=== PATIENT | female | born 1955 | race Caucasian/White ===

== ENCOUNTER 2022-02-04 15:48 | Emergency (ER) | payer OTHER, SELFPAY ==
--- NOTE | ~2022-02-04 | XR_ITS ---
EXAMINATION: XR shoulder RT min 2V DATE: 02/04/2022 16:21 INDICATION: Right shoulder pain. TECHNIQUE: 4 views of right shoulder were obtained. COMPARISON: None. FINDINGS: Bone alignment is normal. No fracture. There is mild osteoarthritis of glenohumeral joint a nd acromioclavicular joint. There are changes of anterior fusion procedure in cervical spine. IMPRESSION: 1. Mild polyarticular osteoarthritis. Reviewed, dictated and finalized at location A.
[2022-02-04 16:00] VITALS: BP 142/66; PULSE 116; RESP 18; TEMP 36.9; O2SAT 98
--- NOTE | 2022-02-04 16:02 | ED.UPPEXIN ---
HPI - Extremity Injury (Upper) General Chief Complaint: Extremity Injury, Upper Stated Complaint: other Time Seen by Provider: 02/04/22 16:02 Source: patient Mode of arrival: ambulatory Limitations: no limitations History of Present Illness HPI narrative: 66-year-old female presented for complaint of right shoulder pain worsening over the past 3 to 4 weeks after injury. She states she fell at that time, stating she took most of the fall to her face but did land on the right upper arm as well. Endorses pain with all range of motion to shoulder. Pain is sharp and shooting. Rates 3 at rest, 7 with movement. Denies numbness, tingling, weakness of the right upper extremity. She takes Tylenol and Motrin for spinal stenosis regularly. Hx cervical spine surgery 'plate' at C5-6 and has chronic neck pain. Related Data Home Medications Medication Instructions Recorded Confirmed atorvastatin 40 mg PO DAILY 02/04/22 02/04/22 fluticasone propion-salmeterol 1 inh INHALATION BID 02/04/22 02/04/22 [Advair Diskus] tramadol 50 mg PO Q8-10H 02/04/22 02/04/22 Allergies Allergy/AdvReac Type Severity Reaction Status Date / Time No Known Allergies Allergy Verified 02/04/22 16:10 Review of Systems Review of Systems: CONSTITUTIONAL: Denies body aches, fever, chills EYES: Denies visual changes ENT: Denies rhinorrhea, congestion CARDIOVASCULAR: Denies chest pain, palpitations, or edema. RESPIRATORY: Denies cough or dyspnea. GASTROINTESTINAL: Denies abdominal pain, nausea, vomiting, or diarrhea. SKIN: Denies rash, itching, or wounds. MUSCULOSKELETAL: reports right shoulder pain NEUROLOGIC: Denies headache, numbness, tingling, or weakness. PSYCH: Denies depression or anxiety. All systems reviewed & are unremarkable except as noted in HPI and below PMFSH Past Medical History Medical History History of IBS Psoriasis Social History Social History Smoking status: Never smoker Comments At time of signature, I have reviewed and agree with nursing past medical, surgical, social and family history unless otherwise noted. Please see nursing chart for further information. There is no relevant family history pertinent to the presenting complaint Exam Narrative: GENERAL: Well-appearing, in no acute distress. HEAD: Normocephalic, atraumatic. EYES: conjunctivae clear NECK: Supple. CHEST: Speaks in full sentences. No respiratory distress. HEART: Regular rate and rhythm. Normal and equal peripheral pulses. EXTREMITIES: ZORAIDA has normal strength and sensation, Full range of motion with flexion/extension/rotation at shoulder, but endorses pain with movement. Tender with palpation to right medial scapula area and trapezius. No vertebral point tenderness. No edema or ecchymosis, No open wounds, skin tenting, or obvious deformity; pulse palpable and equal bilaterally, skin warm, dry, pink. Capillary refill less than 3 seconds. SKIN: Warm, dry, no rash. NEURO: Alert and oriented x3. PSYCH: Normal mood and affect Course Course Emergency Course: Patient is aware of diagnosis, understands and agrees to treatment plan. Anticipatory guidance given. Patient agrees to follow-up as directed and is aware of reasons to seek care at the emergency department. Portions of this record may have been created with voice recognition software Level of Care: Express Care Visit Vital Signs Vital signs: Vital Signs Temperature 98.5 F 02/04/22 16:00 Pulse Rate 116 H 02/04/22 16:00 Respiratory Rate 18 02/04/22 16:00 Blood Pressure 142/66 H 02/04/22 16:00 Pulse Oximetry 98 02/04/22 16:00 Temperature 98.5 F 02/04/22 16:00 Pulse Rate 116 H 02/04/22 16:00 Respiratory Rate 18 02/04/22 16:00 Blood Pressure 142/66 H 02/04/22 16:00 Pulse Oximetry 98 02/04/22 16:00 Reviewed MDM - Extremity Injury (Upper) MDM Narrat
== END 2022-02-04 16:47 | disposition home or self-care (01) ==
PROVIDERS: Emergency Provider Nurse Practitioner Family
DX: M25.511 Pain in right shoulder (principal); E78.00 Pure hypercholesterolemia, unspecified; J43.9 Emphysema, unspecified; M19.90 Unspecified osteoarthritis, unspecified site; M48.00 Spinal stenosis, site unspecified
CPT/HCPCS: 73030; 99213; G0463

== ENCOUNTER 2024-08-10 04:15 | Emergency (ER) | payer MEDICARE, SELFPAY ==
--- NOTE | ~2024-08-10 | CT_ITS ---
Clinical Indication: Abdominal pain CT Scan of the Chest, Abdomen, and Pelvis with Contrast: Technique: Contiguous sections were acquired throughout the chest, abdomen, and pelvis after intraven ous administration of 100 cc of Omnipaque 350. Dose reduction technique was used on this scan by uti toiing automated exposure control and iterative reconstruction technique. The dose-length product (DL P) was 930.55 mGy-cm. Findings: There is no evidence of any significant mediastinal, hilar or axillary lymphadenopathy. The mediastin al soft tissues appear normal. There is no evidence of pleural or pericardial effusion. The lungs are clear. No pulmonary nodules or infiltrates are noted. Moderate emphysema. The liver, spleen, pancreas, right adrenal gland, and kidneys are within normal limits. Cholecystecto my clips are present. 2.1 cm left adrenal nodule present. There are atherosclerotic calcifications of the aorta. No lymphadenopathy. No bowel obstruction or bowel wall thickening. There is no evidence to suggest acute appendicitis. Probable mild diffuse urinary bladder wall thickening. No pelvic mass evident. Small fat-containing b ilateral inguinal hernias present. No ascites. Impression: Probable cystitis. Correlate with urinalysis. Small fat-containing bilateral inguinal hernias. 2.1 cm indeterminate left adrenal nodule. Consider follow-up nonemergent MR to assess for adenoma. Reviewed, dictated and finalized at [facility]. Impression: Probable cystitis. Correlate with urinalysis. Small fat-containing bilateral inguinal hernias. 2.1 cm indeterminate left adrenal nodule. Consider follow-up nonemergent MR to assess for adenoma.
--- NOTE | ~2024-08-10 | XR_ITS ---
Portable chest x-ray Comparison: None Clinical History: Cough Findings: Lungs are clear, without focal consolidation or pleural effusion. Cardiomediastinal silho uette is unremarkable. Bones and soft tissues are unremarkable. Impression: Clear lungs. Reviewed, dictated and finalized at location M. Impression: Clear lungs.
[2024-08-10 04:26] VITALS: BP 152/91; PULSE 131; RESP 22; TEMP 36.9; O2SAT 97
--- NOTE | 2024-08-10 04:37 | ECG_ITS ---
Test Date: 2024-08-10 04:42:43 Measurements Intervals [place] Rate: 129 P: 64 [place]: 128 QRS: -44 QRSD: 128 T: 31 QT: 395 QTc: 579 Interpretive Statements SINUS TACHYCARDIA MARKED LEFT AXIS DEVIATION [QRS AXIS < -30] RIGHT BUNDLE BRANCH BLOCK [120+ ms QRS DURATION, UPRIGHT V1, 40+ ms S IN I/aVL/V4/V5/V6] No previous ECG available for comparison Electronically Signed On 08-10-2024 09:48:01 CDT by Yuly Romero M.D.
[2024-08-10] MEDS: SODIUM CHLORIDE 0.9% IV 1,000 ML 999 ML IV CONT ×2 (04:48→05:13)
--- NOTE | 2024-08-10 05:01 | ED_ITS ---
HPI - Abdominal Pain General Chief Complaint: Abdominal Pain Stated Complaint: hematuria, abdominal pain Time Seen by Provider: 08/10/24 04:18 History of Present Illness HPI narrative: Patient is a 68-year-old female who presents to the emergency department this morning with multiple complaints. Patient states that for the past 9 days she has been having URI/flu-like symptoms with sore throat and a cough that is productive of a greenish brown sputum. Patient also states that she started to develop some abdominal pain and this morning noticed that her urine is purely blood so she finally decided to come to the emergency department for further evaluation. Patient states that her daughter was recently diagnosed with hemochromatosis and she is currently pending blood work to be tested for hemochromatosis since it is hereditary. Patient admits that she has had her gallbladder removed many years ago. Denies any additional symptoms or concerns at this time. Related Data Home Medications Medication Instructions Recorded Confirmed atorvastatin 40 mg tablet 40 mg PO DAILY 02/04/22 02/04/22 fluticasone 100 mcg-salmeterol 50 1 inh inhalation BID 02/04/22 02/04/22 mcg/dose blistr powdr for inhalation (Advair Diskus) tramadol 50 mg tablet 50 mg PO Q8-10H 02/04/22 02/04/22 Allergies Allergy/AdvReac Type Severity Reaction Status Date / Time No Known Allergies Allergy Verified 02/04/22 16:10 Review of Systems Review of Systems: All systems are reviewed and are negative unless stated otherwise in the HPI. [facility] Past Medical History Medical History History of IBS Psoriasis Social History Social History Smoking status: Never smoker Living arrangements: with family Exam Narrative: General: Alert, awake, afebrile, in no acute distress. HEENT: PERRL, no rhinorrhea, no post nasal drip, oropharynx clear. Cardiovascular: Tachycardic with regular rhythm, no murmurs, rubs or gallops, no peripheral edema. Respiratory: Clear to auscultation bilaterally, no tachypnea, no wheezing, no rhonchi, no rubs, no respiratory distress. Abdomen: Soft, nontender, nondistended, no rebound, no guarding, no peritoneal signs. Musculoskeletal: No joint swelling or deformity, normal muscle tone. Skin: No rashes or petechia, no signs of infection. Neurological: Alert and oriented to person, place, and time. Follows all commands. No focal deficits, speech is clear and fluent. Course Vital Signs Vital signs: Vital Signs Temperature 98.5 F 08/10/24 04:26 Pulse Rate 131 H 08/10/24 04:26 Respiratory Rate 22 H 08/10/24 04:26 Blood Pressure 152/91 H 08/10/24 04:26 Pulse Oximetry 97 08/10/24 04:26 Oxygen Delivery Room Air 08/10/24 04:26 Temperature 98.5 F 08/10/24 04:26 Pulse Rate 116 H 08/10/24 07:20 Respiratory Rate 18 08/10/24 07:20 Blood Pressure 164/88 H 08/10/24 07:20 Pulse Oximetry 97 08/10/24 07:20 Oxygen Delivery Room Air 08/10/24 04:26 MDM - Abdominal Pain MDM Narrative Medical decision making narrative: The patient was evaluated by myself in the emergency department. History is obtained from patient who is an independent historian and physical exam was performed. External medical records were reviewed at this time. IV was established and pertinent tests were ordered. Patient was administered 2 L IVF bolus with normal saline, 4 mg of IV morphine for pain and 4 mg IV Zofran for nausea. EKG was obtained which revealed sinus tachycardia at a rate of 129 beats per minute, no evidence of acute ischemia. EKG was independently interpreted by me and is currently pending official cardiology read. Laboratory results obtained revealing a white blood cell count of 12.8, AST 60, ALT 88, lipase 1297. Urinalysis revealed 4+ protein, trace ketones, 4+ blood, 1+ leuk esterase and greater than 100 rbc's. Imaging studies obtained included CXR which was independently interpreted by me revealing no acute process, which is pending final radiology interpretation. CTA chest abdomen pelvis with IV contrast was also obtained at this time and independently interpreted by me revealin. Probable cystitis. Correlate with urinalysis. 2. Small fat-containing bilateral inguinal hernias. 3. 2.1 cm indeterminate left adrenal nodule. Consider follow-up nonemergent MR to assess for adenoma. At this time, patient was informed of these findings at bedside and blood work and imaging results were reviewed with her. Repeat vital signs revealed heart rate of 111 beats per minute. Patient states that she feels significantly b elana. Currently denying any abdominal pain. Shared medical decision-making with patient regarding hospital admission was discussed at this time and patient is refusing admission stating that she would like to follow-up with her primary care physician as an outpatient. Patient was informed that she will be provided with Urology referral regarding her hematuria/cystitis and she was instructed th at she will need to call to set up a follow-up appointment and patient is agreeable. Given that the patient is symptomatic with dysuria and increased urinary frequency patient was informed that she will be placed on an oral antibiotic to take at home. She was administer her initial dose of antibiotic in the emergency department with 1 g IV Rocephin. Differential diagnosis considerations include pyelonephritis, septic stone, gastroenteritis, dehydration, electrolyte derangements. Comorbidities impacting this visit include none. I have evaluated and discussed social determinants of health with the patient that could potentially impact subsequent diagnosis and treatment plans. On repeat assessment of the patient, reevaluation revealed that the patient is doing well and is in no acute distress. Patient symptoms have improved since she arrived to our emergency department. Repeat vital signs were all reviewed and noted to be stable. Differential diagnosis and treatment plan were discussed with the patient at bedside. All questions were answered to the patient's satisfaction. Patient will follow up with urology in 3-5 days. Patient was provided with strict return precautions and instructed to return to the emergency department if any new or worsening symptoms develop. The patient was discharged in stable condition. Lab Data 08/10/24 04:53 08/10/24 04:53 Labs: Lab Results 08/10/24 Range/Units 04:53 WBC 12.8 H (4.5-10.0) K/mm3 RBC 5.31 (4.2-5.4) M/mm3 Hgb 15.6 H (12.0-15.0) g/dL Hct 47.8 H (37.0-47.0) % MCV 90.0 (80-100) fl MCH 29.4 (26-34) pg MCHC 32.6 (32-36) g/dl RDW 11.9 (11.5-14.5) % Plt Count 369 (150-375) k/mm3 MPV 9.8 (7.4-10.4) fl Immature Gran % (Auto) 0.4 (0-0.5) % Neut % (Auto) 70.2 (45.5-73.1) % Lymph % (Auto) 17.9 L (18.3-44.2) % [place] % (Auto) 9.3 H (2.6-8.5) % Eos % (Auto) 1.6 (0-4.4) % Baso % (Auto) 0.6 (0.2-1.2) % Lymph # (Auto) 2.28 (0.9-3.2) K/mm3 [place] # (Auto) 1.2 H (0.1-0.6) K/mm3 Eos # (Auto) 0.2 (0-0.3) K/mm3 Baso # (Auto) 0.1 (0.0-0.1) K/mm3 Abs Immat Gran (auto) 0.05 H (0.00-0.031) K/mm3 Absolute Neuts (auto) 9.0 H (1.3-6.7) K/mm3 Absolute Nucleated RBC 0.000 (0.0-0.012) K/mm3 Nucleated RBC % 0.0 (0.0-0.2) % Sodium 135 L (137-145) mmol/L Potassium 3.7 (3.4-5.0) mmol/L Chloride 102 (98-107) mmol/L Carbon Dioxide 20 L (22-30) mmol/L Anion Gap 13 H (4-12) mmol/L BUN 12 (7-17) mg/dL Creatinine 1.00 (0.7-1.0) mg/dL Estim Creat Clear Calc 46 ml/min Estimated GFR 55 L (59 - ) Glucose 140 H (65-110) mg/dL Lactic Acid 1.4 (0.7-2.0) mmol/L Calcium 9.5 (8.4-10.2) mg/dL Magnesium 1.9 (1.6-2.3) mg/dL Total Bilirubin 1.0 (0.2-1.3) mg/dL AST 60 H (14-36) U/L ALT 88 H (6-35) U/L Alkaline Phosphatase 105 (38-126) U/L Total Protein 9.0 H (6.3-8.2) g/dL Albumin 4.7 (3.5-5.1) g/dL Lipase 1297 H (23-300) U/L Urine Color Yellow (Yellow) Urine Appearance Clear (Clear) Urine pH 6.5 (5.0-9.0) Ur Specific [place] 1.025 (1.001-1.035) Urine Protein 4+ H (Negative) mg/dL Urine Glucose (UA) Negative (Negative) mg/dL Urine Ketones Trace H (Negative) mg/dL Ur Blood (Man) 4+ H (Negative) Urine Nitrate Negative (Negative) Urine Bilirubin Negative (Negative) Urine Urobilinogen 1.0 (<2.0) mg/dL Add Ur Microanalysis Reviewed Leukocyte Esterase Rfl 1+ H (Negative) PAULINE/UL Urine RBC >100 H (0-2) /hpf Urine WBC 0-5 (0-3) /hpf Ur Squamous Epith Cells None seen (Few) /hpf Urine Bacteria Trace /hpf Urine Casts 0-2 Influenza A (RT-PCR) Negative (Negative) Influenza B (RT-PCR) Negative (Negative) RSV (RT-PCR) Negative (Negative) SARS-CoV-2 RNA (RT-PCR) Negative (Negative) Imaging Data Radiologist's impression: ITS Impressions Chest X-Ray 08/10/24 05:52 Impression: Clear lungs. Chest/Abdomen/Pelvis CTA 08/10/24 06:33 Impression: Probable cystitis. Correlate with urinalysis. Small fat-containing bilateral inguinal hernias. 2.1 cm indeterminate left adrenal nodule. Consider follow-up nonemergent MR to assess for adenoma. Discharge Plan Discharge Clinical Impression: Hematuria, Cystitis Patient Disposition: Home, Self-Care Condition: Improved Instructions: Antibiotic Form, Hematuria (ED), Interstitial Cystitis (ED) Additional Instructions: Please follow-up with the urologist you were provided with today within the next 3-5 days. Return to the emergency department if any new or worsening symptoms develop. Take the prescribed antibiotic as instructed. Prescriptions: New cephalexin 500 mg capsule 500 mg PO Q12H 5 Days Qty: 10 0RF cephalexin 500 mg capsule 500 mg PO Q12H Qty: 10 0RF No Action atorvastatin 40 mg tablet 40 mg PO DAILY tramadol 50 mg tablet 50 mg PO Q8-10H fluticasone propion-salmeterol [Advair Diskus] 100-50 mcg/dose blister with device 1 inh INHALATION BID Follow-up/Referrals: Estuadro Isaac MD [Physician] - 3 Days UNKNOWN,DOCTOR [Primary Care Provider] - Time of Disposition: 06:54
[2024-08-10 05:05] LABS: Basophils Absolute Auto 0.1 K/mm3 (0.0-0.1); Basophils Percent Auto 0.6 % (0.2-1.2); Eosinophils Absolute Auto 0.2 K/mm3 (0-0.3); Eosinophils Percent Auto 1.6 % (0-4.4); Hematocrit 47.8 % (37.0-47.0); Hemoglobin 15.6 g/dL (12.0-15.0); Immature Granulocyte Absolute 0.05 K/mm3 (0.00-0.031); Immature Granulocyte Percent A 0.4 % (0-0.5); Lymphocytes Absolute Auto 2.28 K/mm3 (0.9-3.2); Lymphocytes Percent Auto 17.9 % (18.3-44.2); Mean Corpuscular HGB Conc 32.6 g/dl (32-36); Mean Corpuscular Hemoglobin 29.4 pg (26-34); Mean Platelet Volume 9.8 fl (7.4-10.4); Monocytes Absolute Auto 1.2 K/mm3 (0.1-0.6); Monocytes Percent Auto 9.3 % (2.6-8.5); Neutrophils Percent Auto 70.2 % (45.5-73.1); Platelet Count Result 369 k/mm3 (150-375); Red Blood Count 5.31 M/mm3 (4.2-5.4); Red Cell Distribution Width 11.9 % (11.5-14.5); White Blood Count 12.8 K/mm3 (4.5-10.0)
[2024-08-10 05:18] LABS: Lactic Acid Reflex 1.4 mmol/L (0.7-2.0); Magnesium 1.9 mg/dL (1.6-2.3)
[2024-08-10 05:35] LABS: Add Urine Microscopic? YES; Appearance Urine Clear (Clear); Bacteria Urine Trace /hpf; Bilirubin Urine Negative (Negative); Blood Urine 4+ (Negative); Color Urine Yellow (Yellow); Glucose Urine UA Negative (Negative); Ketones Urine Trace mg/dL (Negative); Leukocyte Esterase Ur 1+ LEU/UL (Negative); Need Manual Microscopic Reviewed; Nitrate Urine Negative (Negative); Non Pathogenic Casts 0-2; Protein Urine 4+ mg/dL (Negative); RBC Urine >100 /hpf (0-2); Specific Grav Ur 1.025 (1.001-1.035); Squamous Epithelial Cell Urine None Seen /hpf (Few); WBC Urine 0-5 /hpf (0-3); pH Urine 6.5 (5.0-9.0)
[2024-08-10 05:41] LABS: Influenza A QL RT-PCR Negative (Negative); Influenza B QL RT-PCR Negative (Negative); RSV RNA, RT-PCR Negative (Negative); SARS-CoV-2 RNA PCR Negative (Negative)
[2024-08-10 05:44] LABS: Alanine Aminotransferase 88 U/L (6-35); Albumin Level 4.7 g/dL (3.5-5.1); Alkaline Phosphatase 105 U/L (38-126); Anion Gap 13 mmol/L (4-12); Aspartate Amino Transferase 60 U/L (14-36); Blood Urea Nitrogen 12 mg/dL (7-17); Calcium 9.5 mg/dL (8.4-10.2); Carbon Dioxide 20 mmol/L (22-30); Chloride 102 mmol/L (98-107); Estimated CRCL calculation 46 ml/min; Estimated Glomerular Filt Rate 55; Glucose 140 mg/dL (65-110); Lipase 1297 U/L (23-300); Potassium 3.7 mmol/L (3.4-5.0); Sodium 135 mmol/L (137-145)
--- NOTE | 2024-08-10 06:02 | PC.NURSE ---
Pt to CT at this time.
[2024-08-10] MEDS: ONDANSETRON INJ 4 MG/2 ML VIAL IV PUSH (06:14)
--- NOTE | 2024-08-10 06:15 | PC.NURSE ---
Pt refusing medication order of morphine at this time. pt states she is not in any pain at this time, but will notify RN when pain medication is needed.
[2024-08-10 06:17] VITALS: BP 163/89; PULSE 115; RESP 17; O2SAT 98
[2024-08-10 07:20] VITALS: BP 164/88; PULSE 116; RESP 18; O2SAT 97
--- NOTE | 2024-08-22 15:11 | PC.NURSE ---
LATE ENTRY This note is being entered to document information to the patient's record. The following information was omitted on [08/22/24], by [Lulú Cruz stopped at 0745 on 08/10].
== END 2024-08-10 07:49 | disposition home or self-care (01) ==
PROVIDERS: Emergency Provider Emergency Medicine
DX: N30.91 Cystitis, unspecified with hematuria (principal); Z20.822 Contact with and (suspected) exposure to COVID-19; K58.9 Irritable bowel syndrome, unspecified; L40.9 Psoriasis, unspecified; E27.9 Disorder of adrenal gland, unspecified; Z79.899 Other long term (current) drug therapy
CPT/HCPCS: 36415; 71045; 71275; 74177; 80053; 81001; 83605; 83690; 83735; 85025; 87040; 87077; 87086; 87186; 87637; 93005; 96361; 96365; 96375; 99284; J0696; J2405; J7030; Q9967

== ENCOUNTER 2025-05-23 17:52 | Emergency (ER) | payer MEDICARE, SELFPAY ==
--- OUTSIDE RECORDS SUMMARY | 2025-05-23 17:55 | XMS_ITS | Clinical Summary ---
Author Organization [facility] Address [address] [place] [address] Phone Care Team Providers Care Test Desk Trouble Locator Name Role Phone Oskar MEHTA MD, [facility] [phone] Rachelle Early MD Primary Care Provider Allergies No known active allergies Medications acetaminophen (TYLENOL) 500 mg tablet Take 2 tablets (1,000 mg total) by mouth every 6 (six) hours as needed for pain Active fluticasone propionate (FLONASE) 50 mcg/actuation nasal spray Administer 1 spray into each nostril daily Active ergocalciferol, vitamin D2, (VITAMIN D2 ORAL) Take by mouth Active calcium carbonate (TUMS) 500 mg (200 mg elemental iron) chewable tablet Take 1 tablet/chew tab (500 mg total) by mouth 4 (four) times a day as needed for heartburn Active albuterol HFA (PROVENTIL HFA,VENTOLIN HFA,PROAIR HFA) 90 mcg/actuation inhaler INHALE 2 PUFFS BY MOUTH EVERY 6 HOURS NEEDED FOR WHEEZING OR SHORTNESS OF BREATH 8.5 g 1 023 Active Additional Information Patient taking differently: 2 puff inhalation Every 6 hours PRN, wheezing, shortness of breath, Informant: Self, Reported on 05/01/2025 ibuprofen (ADVIL,MOTRIN) 600 mg tablet Take 1 tablet (600 mg total) by mouth 3 (three) times a day as needed for pain Active cyclobenzaprine (FLEXERIL) 5 mg tablet Take 1 tablet (5 mg total) by mouth 3 (three) times a day as needed for muscle spasms 90 tablet 024 Active semaglutide 0.25 mg or 0.5 mg (2 mg/3 mL) pen injector injection Take by mouth Active amLODIPine (NORVASC) 5 mg tablet Take 1 tablet (5 mg total) by mouth daily 90 tablet 3 025 Active atorvastatin (LIPITOR) 40 mg tabletIndications :Mixed hyperlipidemia Take 1 tablet (40 mg total) by mouth daily 100 tablet 1 025 Active traZODone (DESYREL) 50 mg tabletIndications :Annual physical exam TAKE 1 TABLET(50 MG) BY MOUTH EVERY NIGHT 100 tablet 025 Active traMADoL (ULTRAM) 50 mg tablet Take 1 tablet (50 mg total) by mouth every 12 (twelve) hours as needed for pain 30 tablet 1 025 Active gabapentin (NEURONTIN) 300 mg capsule Take 1 capsule (300 mg total) by mouth 3 (three) times a day 270 capsule 1 025 2025 Active gabapentin (NEURONTIN) 100 mg capsule Take 1 capsule (100 mg total) by mouth 3 (three) times a day 270 capsule 4 025 2025 Active gabapentin (NEURONTIN) 600 mg tablet Take 1 tablet (600 mg total) by mouth 3 (three) times a day 90 tablet 11 024 2024 Discontinued traZODone (DESYREL) 50 mg tabletIndications :Annual physical exam Take 1 tablet (50 mg total) by mouth nightly 100 tablet 1 025 2024 Discontinued traMADoL (ULTRAM) 50 mg tablet Take 1 tablet (50 mg total) by mouth every 12 (twelve) hours as needed for pain 30 tablet 1 025 2024 Discontinued(R denilson) Active Problems Problem Noted Date Diagnosed Date Elevated hemoglobin 11/03/2024 Intervertebral disc disorder with radiculopathy of lumbar region 12/04/2023 Personal history of colonic polyps 10/28/2023 Acute cholecystitis 04/01/2022 IBS (irritable bowel syndrome) 02/25/2022 Adrenal adenoma, left 02/25/2022 Spinal stenosis 02/25/2022 Elevated blood pressure reading 02/25/2022 Screen for colon cancer 06/06/2020 Overview (06/06/2020): Added automatically from request for surgery [id number] Trochanteric bursitis of both hips 07/01/2019 Assessment & Plan (07/01/2019 12:20 PM CDT): Recent MRI revealed bilateral trochanteric bursitis. Patient given handout of exercises. Also sees PT and has appointment soon with pain management Dr. Pepe. Polyarthralgia 03/24/2019 Overview (07/01/2019): Labs (03/24/19): negative AVISE (03/24/19): BHAVANA 1:80 nucleolar pattern Hepatitis negative: 02/2019 Quantiferon - indeterminate x2 - PPD negative Xray pelvis (03/29/19): mild jts space narrowing at hips Xray Hiro feet (03/29/19): mild degenerative changes, calcaneal spur Xray Hiro hands (03/29/19): CMC OA, mild degenerative changes Xray L-spine (03/29/19): very mild DDD L2-3 CXR (03/29/19): few small scattered perihilar densities which may be related to vessels on end, sequelae of remote infection, or both. MRI pelvis (06/23/19): SI joints wnl. Left gluteus minimus tendon tear and right gluteus minimus tendon partial tear. Mild bilat greater trochanteric bursitis. US R hand/wrist (04/01/19): Mild synovial thickening of the 2nd and 3rd PIPs on examination which will have to be correlated clinically. If MRI indicates sacroiliitis, consider repeating TB 3 months after starting biolgoics. Neg MRI - likely not psoriatic arthritis. F/u 3 months and if no changes release pt. Assessment & Plan (07/01/2019 4:59 PM CDT): Continues to have pain and stiffness in low back/SI joints and hips. MRI of pelvis/SI joints revealed left gluteus minimus tear and partial tear on the right as well as bilateral trochanteric bursitis. No sacroiliitis noted which makes the diagnosis of psoriatic arthritis less likely. No obvious peripheral synovitis or tenderness noted on exam. Has been on MTX and enbrel in the past for psoriasis. Failed nabumetone, oxaprozin, ibuprofen, and naproxen. Based on MRI findings, it is likely the tendon tears and trochanteric bursitis are causing her symptoms and not an underlying spondyloarthritis. Continue PT which was ordered last visit. Has appointment with pain management Dr. Pepe soon. Could consider following with ortho for gluteus minimus tears, but will see how she responds to PT. Patient given handout of exercises for trochanteric bursitis. Continue Diclofenac 75mg BID as she notes benefit with this. Follows with podiatry for plantar fasciitis. Follow up in 3 months. Sooner if needed. Assessment & Plan (05/20/2019 2:56 PM CDT): Continues to have pain and stiffness mostly in her low back, SI joints, hips, and hands. Foot pain improved with corticosteroid injections. Pain resolved with prednisone in the past. Lumbar spine and SI joints are tender on exam today. No obvious peripheral synovitis or tenderness. Has been on MTX and enbrel in the past for psoriasis. MTX caused nausea. Failed nabumetone, oxaprozin, ibuprofen, and naproxen. Low back stiffness as well as history of psoriasis, tendinitis, and plantar fasciitis are suspicious for psoriatic arthritis, however there are no peripheral joint findings to confirm this diagnosis. Will get an MRI of the SI joints to further evaluate for sacroiliitis. Will also give referral for PT of the low back/SI joints and hips as well as referral to pain management for evaluation and possible SI joints/lumbar spine injections. Will continue to monitor for any progression that would indication an inflammatory arthritis. Stop nabumetone and start diclofenac 75mg BID. Follow up in 6 weeks. Sooner if needed. Seen with Dr. Schmitt. Assessment & Plan (04/26/2019 3:13 PM CDT): US R hand/wrist (6/7/19): Mild synovial thickening of the 2nd and 3rd PIPs on examination which will have to be correlated clinically. Serologies revealed a low positive BHAVANA 1:80, however denies any symptoms to suggest a CTD. Radiographs revealed OA in the bilateral hips, feet, hands, and lumbar spine. Continues to note pain and stiffness in hands, feet, and low back. Morning stiffness can last 30 minutes - 1 hour. Pain resolved while on prednisone in the past. No obvious synovitis or tenderness on exam. Left medial epicondyle tender to palpation. Has been on methotrexate and enbrel in the past for psoriasis. Methotrexate cause nausea. Low back stiffness as well as history of psoriasis, tendinitis, and plantar fasciitis are suspicious for psoriatic arthritis, however there are no peripheral joint findings to confirm this diagnosis. She also has a history of injury to her low back and x-ray did note DDD at L2-3. Likely that some of her pain is related to osteoarthritis seen on x-rays. Will stop ibuprofen 800mg TID as it is offering no benefit and start nabumetone 750mg BID prn pain. Has failed oxaprozin and naproxen in the past. Will continue to monitor for any progression that would indicate an inflammatory arthritis. Follow up in 1 month. Sooner if needed. Seen with Dr. Schmitt. Assessment & Plan (03/24/2019 4:30 PM CDT): Patient presents with history of psoriasis, plantar fasciitis, and pain in her lumbar spine, knees, and hands. Notes morning stiffness in her low back that can last 1 hour. Reports prednisone almost completely resolved her symptoms. Currently on ibuprofen 800mg TID with mild benefit. Swelling and tenderness noted across a few peripheral joints on exam today. Lumbar spine tender on exam while bilateral SI joints are non-tender. Symptoms and exam are suspicious for psoriatic arthritis. Will order appropriate serologies, radiographs, and a right hand/wrist US to further evaluate. Follow up in 2 weeks. Sooner if needed. Seen with Dr. Schmitt. Chronic bilateral low back pain without sciatica 07/06/2017 Unspecified dyspareunia (CODE) 11/21/2016 Herpes labialis 07/04/2016 Overview (01/29/2017): Cold sore Neck pain 07/04/2016 Overview (01/29/2017): Neck pain Psoriasis 02/06/2016 Ocular migraine 05/18/2015 Overview (01/29/2017): Ocular migraine Panic disorder 11/08/2014 Overview (01/29/2017): Panic anxiety syndrome Hyperlipidemia 03/11/2014 Overview (01/28/2017): HYPERLIPIDEMIA NEC/NOS Osteoarthritis 03/11/2014 Overview (01/30/2017): OSTEOARTHROS NOS-UNSPEC Menopausal symptom 06/20/2012 Emphysema of lung Resolved Problems Problem Noted Date Diagnosed Date Resolved Date Medial epicondylitis of left elbow 04/26/2019 02/25/2022 Assessment & Plan (07/01/2019 12:12 PM CDT): Left medial epicondyle tender on exam. Denies much benefit with nabumetone so stop this and start diclofenac 75mg BID. Recommend an elbow strap. If no benefit could always consider PT or even a corticosteroid injection. Assessment & Plan (05/20/2019 2:56 PM CDT): Left medial epicondyle tender on exam. Denies much benefit with nabumetone so stop this and start diclofenac 75mg BID. Recommend an elbow strap. If no benefit could always consider PT or even a corticosteroid injection. Assessment & Plan (04/26/2019 3:15 PM CDT): Left medial epicondyle tender on exam. Stop ibuprofen and start nabumetone 750mg BID. If no benefit could always consider an elbow strap, PT, and even a corticosteroid injection. Hearing loss 01/23/2015 02/25/2022 Joint finding 03/11/2014 02/25/2022 Overview (01/30/2017): JOINT SYMPT NEC-UNSP JT Encounters Date Type Department Care Team Description 05/23/2025 Nurse Triage [place] [id number] [place] [address] [address] [place] [address] Rachelle Early MD 05/17/[address] [place] [address] Rachelle Early MD Medication Request 05/01/2025 11:00 AM CDT Office Visit [address] [place] [phone] Rachelle Early MD Chronic pain syndrome (Primary Dx); Facial skin lesion; Burn 04/25/[address] [place] [phone] Rachelle Early MD Symptom Based Call from Last 3 Months Immunizations Immunization Administration Dates Next Due Influenza, Quadrivalent, Hig h Dose, Preservative Free, Intrr 10/28/2023 Influenza, Quadrivalent, Rec ombinant, Egg Free, Preservative Free, Intramuscular 07/30/2019 Influenza, Quadrivalent, Spl it, Preservative Free, Intramuscular 01/22/2022,08/07/2020,09/13/2018,07/04,07/04/2016,07/17/2015,07/17/2015 [employer] (J[employer]J) SARS-CoV-2 Vaccination 01/03/2021 PPD TEST 04/11/2019 Pneumococcal Conjugate Pcv20 10/28/2023 RSV Vaccine, Pref, Recombina nt, Subunit, Adjuvanted, PF, IM (Arexvy) 11/21/2023 Td, adsorbed 11/26/2005,11/26/2005 Tdap 07/04/2016,07/04/2016 ZOSTER Recombinant 09/12/2019,07/08/2019, 019 Surgical History Surgery Date Site/Laterality Comments CERVICAL FUSION C5-C6 COLONOSCOPY AUGMENTATION MAMMOPLASTY 10/26/2003 - 10/25/2004 AUGMENTATION MAMMAPLASTY Bilateral Saline Implants BREAST BIOPSY Left Benign KNEE SURGERY FL UPPER GI AIR CONTRAST W KUB 08/19/2022 Left FL UPPER GI AIR CONTRAST W KUB 02/10/2023 Left FL FLUORO GUIDED LUMBAR PUNCTURE 03/17/2023 Right CHOLECYSTECTOMY 03/26/2022 - 04/24/2022 FL UPPER GI AIR CONTRAST W KUB 06/01/2023 Left Medical History Medical History Date Comments Hx Other Medical psoriatic arthr itis? Bursitis 05/2019 B hips Plantar fasciitis 05/2019 Hyperlipidemia 03/11/2014 DDD (degenerative disc disease), cervical Lumbar radiculopathy Chest pain History of cholecystectomy PONV (postoperative nausea and vomiting) Has not had issues in many years Colon polyp Irritable bowel syndrome GERD (gastroesophageal reflux disease) Dysphagia Cholelithiasis Emphysema of lung (HCC) Family History Medical History Relation Name Comments Hypertension Father Hypertension; Skin cancer Father Cancer -skin; Lung cancer Maternal Grandfather Depression Mother Depression; Heart disease Mother Heart disease; Lupus Mother Lupus erythemat osus; Rheum arthritis Mother Rheumatoid a rthritis; Breast cancer Mother's Brother Heart disease Paternal Grandmother Malig Hyperthermia Neg Hx Pseudochol deficiency Neg Hx Relation Name Status Comments Father Maternal Grandfather Mother Mother's Brother Paternal Grandmother Social History Tobacco Use Types Packs/Day Years Used Date Smoking Tobacco: Former Cigarettes 1 45 1 [id number] Passive Smoke Exposure: Past Smokeless Tobacco: Current Tobacco Cessation:Ready to Q uit: Not Asked; Counseling Given: Not Answered Comments:Lozenge when people are smoking around her house Alcohol Use Standard Drinks/Week Comments Yes 0 (1 standard drink = 0.6 oz pur e alcohol) AUDIT-C Answer Date Recorded Q1: How often do you have a drink containing alc ohol? Monthly or less 06/17/2024 Q2: How many drinks containi ng alcohol do you have on a typical day when you are drinking? 1 or 2 06/17/2024 Q3: How often do you have si x or more drinks on one occasion? Never 06/17/2024 PHQ-2 Answer Date Recorded PHQ-2 Total Score (If total score is 3 or more points, staff should administer the PHQ-9) 0 05/01/2025 Personal Safety Answer Date Recorded Have you ever been in or are you currently in a harmful physical or emotional relationship or is someone making you feel afraid or unsafe? Denies 05/12/2024 Comments No Sex and Gender Information Value Date Recorded Sex Assigned at Not on file Legal Sex Female 12:44 AM PODIATRIC SURGEON Gender Identity Female 02/28/2022 1:54 PM CDT Sexual Orientation Straight 02/28/2022 1: 54 PM CDT Occupation Industry Job Start Date Job End Date Retired Not on file Not on file Not on file Obstetrics History Para Term AB IAB SAB Ectopic Multiple Livin g Live Births 2 2 2 Date Outcome GA Total Labor Labor/2nd/3rd Weight Sex Type Anes PTL Lory A1 A5 Name Clin Term Term Last Filed Vital Signs Vital Sign Reading Time Taken Comments Blood Pressure 126/72 05/01/2025 11:16 AM CDT Pulse 68 05/01/2025 11:16 AM CDT Temperature 36.4 C (97.5 F) 11/03/2024 11:18 AM PODIATRIC SURGEON Respiratory Rate 16 05/01/2025 11:16 AM CDT Oxygen Saturation 99% 05/01/2025 11:16 AM CDT Inhaled Oxygen Concentration - - Weight 61.2 kg (135 lb) 05/01/2025 11:16 AM CDT Height 154.9 cm (5' 1) 05/01/2025 11:16 AM CDT Body Mass Index 25.51 05/01/2025 11:16 AM CDT Plan of Treatment Scheduled Procedures Name Priority Associated Diagnoses Date/Ti me COLONOSCOPY Colon cancer screening ESOPHAGOGASTRODUODENOSCOPY Gastroesophageal reflux disease, unspecified whether esophagitis present COLONOSCOPY Screen for colon cancer Health Maintenance Due Date Last Done Comments Meningococcal B Vaccine (1 o f 5 - Increased Risk) 1965 Lung Cancer Screening 2007 Covid-19 Vaccine (2023-2 5 season) 2024 10/28/2021, 01/03/2021 Breast Cancer Screening-Mammogram 09/14/2024 09/14/2023, 01/20/2022, 07/08/2019, Additional history exists Osteoporosis Screening-Bone Density Scan 09/30/2024 09/30/2022 Influenza Vaccine (#1) 2025 , 01/22/2022, 01/22/2022, Additional history exists Fall Risk Assessment 11/03/2025 11/03/2024, 03/10/2024, 10/28/2023, Additional history exists Well Visit 65+ 11/03/2025 11/03/2024, 12/2023, 10/28/2023, Additional history exists Depression Screening 05/01/2026 05/01/2025, 11/03/2024, 10/28/2023, Additional history exists DTaP/Tdap/Td Vaccine (3 - Td or Tdap) 07/04/2026 07/04/2016, 07/04/2016, 11/26/2005, Additional history exists Colon Cancer Screening-Colonoscopy 05/12/2027 05/12/2024, 08/27/2020, 03/30/2009 Cervical Cancer Screening Discontinued 11/21/2016 Hepatitis C Screening Completed 03/24/2019, 017 Zoster Vaccine Completed 09/12/2019, 06/26, 07/08/2019 Pneumococcal vaccine 65+ Completed 10/28/2023 Colon Cancer Screening-CT Colonography Discontinued 05/12/2024, 08/27/2020, 03/30/2009 Colon Cancer Screening-DNA Stool Discontinued 05/12/2024, 08/27/2020, 03/30/2009 Colon Cancer Screening-FIT Discontinued 05/12, 08/27/2020, 03/30/2009 Colon Cancer Screening-Sigmoidoscopy Discontinued 05/12/2024, 08/27/2020, 03/30/2009 Hepatitis B Screening Completed 11/24/2024 Medical Devices Implanted Type Area Lieutenant Firefighter Device Identifier Shelf Expiration Date Model / Serial / Lot [id number] Fusion-09/23/20 07 Implanted:09/23 (Quantity not on file) Cervical-Bella mbar Spine Procedures Procedure Name Priority Date/Time Associated Diagnosis Comments COLONOSCOPY 05/12/2024 10:40 AM CDT SCREENING MAMMOGRAM BILATERAL W AKASH W IMPLANTS Schedule Routine, Read Routine (OP Routine) 09/14/2023 11:22 AM PODIATRIC SURGEON Breast cancer screening by mammogram DEXA AXIAL SKELETON BONE DENSITY 1 OR MORE SITES Schedule Routine, Read Routine (OP Routine) 09/30/2022 10:20 AM PODIATRIC SURGEON Postmenopausal HEPATITIS C ANTIBODY Routine 03/24/2019 3:41 PM CDT Fatigue, unspecified type HM PAP SMEAR WITH HPV Routine 11/21/2016 from Last 3 Months or Most Recently Relevant to Health Maintenance Results * Colonoscopy (05/12/2024 10:40 AM CDT) Anatomical Region Laterality Modality Other Narrative Procedure Note Maude Tenorio MD - 05/12/2024 10:40 AM CDT ENDOSCOPY LAB Patient Name: Evi Zavala Procedure Date: 05/12/2024 10:40 AM Admit Type: Outpatient Room: [facility] Date of : 1955 Instrument Name: [id number] Gender: Female Note Status: Finalized Procedure: Colonoscopy Indications: High risk colon cancer surveillance: Personalhistory of sessile serrated colon polyp (10 mm or greaterin size), Last colonoscopy: August 2020 Providers: Maude Tenorio M.D. Referring MD: Rachelle Early M.D. Medicines: Monitored Anesthesia Care Complications: No immediate complications. Estimated Blood Loss: Estimated blood loss was minimal. Procedure: Pre-Anesthesia Assessment: - Immediately prior to administration ofmedications, the patient was re-assessed for adequacy to receive sedatives. - The risks and benefits of the procedure and the sedation options and risks were discussed with the patient. All questions were answered and informed consent was obtained. The benefits, risks and alternatives of theprocedure and sedation were discussed and informed consentwas obtained. All questions were answered. Please referto the signed informed consent document in the medical record. The scope was passed under direct vision.The Colonoscope was introduced through the anus and advanced to the the cecum, identified byappendiceal orifice and ileocecal valve. The colonoscopy was performed without difficulty. The patient tolerated the procedure well. The bowel preparation used was GoLYTELY via split dose instruction. The quality of the bowel preparation was evaluated using the BBPS ([place] Bowel Preparation Scale) with scores of:Right Colon = 1 (portion of mucosa seen, but other areasnot well seen due to staining, residual stool and/or opaque liquid), Transverse Colon = 2 (minor amountof residual staining, small fragments of stool and/or opaque liquid, but mucosa seen well) and Left Colon= 2 (minor amount of residual staining, smallfragments of stool and/or opaque liquid, but mucosa seenwell). The total BBPS score equals 5. The quality of the bowel preparation was fair. The ileocecal valve, appendiceal orifice, and rectum werephotographed. Findings: The perianal and digital rectal examinations were normal. An 8 mm polyp was found in the cecum. The polyp was sessile. Thepolyp was removed with a cold snare. Resection and retrieval were complete. Estimated blood loss was minimal. An 8 mm polyp was found in the mid descending colon. The polyp was sessile. The polyp was removed with a cold snare. Resection and retrieval were complete. Estimated blood loss was minimal. A large amount of semi-liquid stool was found in the entire colon, making visualization difficult. Lavage of the area was performed, resulting in clearance with adequate visualization was obtained but small or flat lesions could be missed. Impression: - One 8 mm polyp in the cecum, removed with a cold snare. Resected and retrieved. - One 8 mm polyp in the mid descending colon,removed with a cold snare. Resected and retrieved. - Stool in the entire examined colon, washed and suctioned as best possible but small or flatlesions could be missed. Recommendation: - Patient has a contact number available for emergencies. The signs and symptoms of potential delayed complications were discussed with thepatient. Return to normal activities tomorrow. Written discharge instructions were provided to thepatient. - Resume previous diet. - Continue present medications. - Await pathology results. - Repeat colonoscopy in 1 year because the bowel preparation was suboptimal. - Recommend 2 day prep for next procedure - Return to referring physician as previously scheduled. Attending Participation: I personally performed the entire procedure. Electronically signed by Maude Tenorio MD Maude Tenorio M.D. 05/12/2024 11:26:38 AM This document was signed electronically. Number of Addenda: 0 Note Initiated On: 05/12/2024 10:40 AM Scope Withdrawal Time: 0 hours 17 minutes 13 seconds Scope In: 10:47:27 AM Scope Out: 11:17:01 AM us Maude Tenorio MD ENDOSCOPY PROCEDURES Edit ed Result - Final * Screening Mammogram Bilateral w Akash w Implants (09/14/2023 11:22 AM PODIATRIC SURGEON) Anatomical Region Laterality Modality Breast Bilateral Mammography Impressions 09/14/2023 11:41 AM PODIATRIC SURGEON BI-RADS ATLAS category (overall): 2 - Benign There is no mammographic evidence of malignancy. A 1 year screening mammogram is recommended. The patient has been or will be contacted. We recommend annual screening mammography for women at average risk of breast cancer beginning at age 40, based on guidelines of the [employer] (ACR Practice Parameter for the Performance of Screening and Diagnostic Mammography) and [employer]. For women with and elevated risk of breast cancer, please refer to the ACR Practice Parameter for specific screening recommendations. The patient will be entered into a reminder system with a target due date of 1 year for her next screening exam. Narrative 09/14/2023 11:41 AM PODIATRIC SURGEON Screening Mammogram Bilateral w Akash w Implants: 09/14/23 The study was acquired using full field digital technology and interpreted from soft copy. 2D digital mammographic views, as well as 3D digital tomosynthesis were performed in the CC and MLO projections. CLINICAL: Breast cancer screening by mammogram. No relevant medical history has been documented for this patient. History of breast cancer in Mother's Brother. COMPARISONS: 01/20/2022 Screening Mammogram Bilateral W Akash W Implants 07/08/2019 Screening Mammogram Bilateral W Akash 07/04/2016 Screening Mammogram 06/08/2013 Screening Mammogram BREAST TISSUE: The breasts are heterogeneously dense, which may obscure small masses. FINDINGS: Bilateral subpectoral saline breast implantsare intact and unchanged in appearance. The presence of implants limits the sensitivity of mammography. There are stable benign masses in the left breast. There is no new suspicious finding in either breast on mammogram. Laurie Silva NP IMG MAMMO PROCEDURES Final Resu lt * Dexa Axial Skeleton Bone Density 1 or 2 Site (09/30/2022 10:20 AM PODIATRIC SURGEON) Anatomical Region Laterality Modality Body N/A Mammography 09/30/2022 8:04 PM PODIATRIC SURGEON Narrative 09/30/2022 8:06 PM PODIATRIC SURGEON EXAM DESCRIPTION: DEXA AXIAL SKELETON BONE DENSITY 1 OR MORE SITES REASON FOR STUDY: 66 y/o year old F with given history of screening. Postmenopausal Lieutenant Firefighter/Model: dotHIV A (S/N [id number]) CLINICAL INFORMATION: Current height: 62 inches Maximum height: 62.5 inches Weight: 153 pounds Risk factors: Postmenopausal, inflammatory bowel disease, chronic obstructive pulmonary disease. COMPARISON: None available. FINDINGS: AP LUMBAR SPINE L1-L4: Total BMD is 0.911 g/cm2 T-score is -1.2 LEFT HIP: Total BMD is 1.069 g/cm2 T-score is 1.0 Femoral neck BMD is 0.822 g/cm2 T-score is -0.2 FRAX: 10 year risk for a major osteoporotic fracture is 6.9 %, 10 year risk for a hip fracture is 0.3 % IMPRESSION: Based on the lumbar spine bone mineral density (T-score -1.2 ) the patient has low bone mass . REFERENCE: Bone mineral density: Normal (T-score above or = -1.0) Low bone mass (T-score between -1.0 and -2.5) replaces the previously used term osteopenia Osteoporosis (T-score = or below -2.5) Medical evaluation for secondary causes of low bone mineral density may be appropriate. FRAX is a World Health Organization validated fracture risk assessment tool that calculates a person's 10 year probability of a major osteoporosis related fracture and hip fracture. According to the National Osteoporosis Foundation guidelines, postmenopausal women and men age 50 or older with low bone mass and a 10 year probability of a major osteoporosis related fracture = or greater than 20% or a 10 year probability of a hip fracture = or greater than 3% should be considered for treatment. For further information, including treatment recommendations, please refer to the 2013 ISCD Official Positions (http://www.iscd.org) and the NOF's Clinician's Guide to Prevention and Treatment of Osteoporosis (http://www.nof.org/professionals/clinical-guidelines) THIS IS AN ELECTRONICALLY VERIFIED FINAL REPORT 09/30/2022 8:06 PM - Electronically signed by Edu Garcia M.D. MF: GLO Report ID: [id number] Reading Location: [place] [address] Procedure Note Edu Garcia MD - 09/30/2022 EXAM DESCRIPTION: DEXA AXIAL SKELETON BONE DENSITY 1 OR MORE SITES REASON FOR STUDY: 66 y/o year old F with given history ofscreening. 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 COMPARISON: None available. FINDINGS: AP LUMBAR SPINE L1-L4: Total BMD is 0.911 g/cm2 T-score is -1.2 LEFT HIP: Total BMD is 1.069 g/cm2 T-score is 1.0 Femoral neck BMD is 0.822 g/cm2 T-score is -0.2 FRAX: 10 year risk for a major osteoporotic fracture is 6.9 %, 10 year risk fora hip fracture is 0.3 % IMPRESSION: Based on the lumbar spine bone mineral density (T-score-1.2 ) the patient has low bone mass . REFERENCE: Bone mineral density: Normal (T-score above or = -1.0) Low bone mass (T-score between -1.0 and -2.5) replaces thepreviously used term osteopenia Osteoporosis (T-score = or below -2.5) Medical evaluation for secondary causes of low bone mineral density may be appropriate. FRAX is a World Health Organization validated fracture risk assessmenttool that calculates a person's 10 year probability of a major osteoporosisrelated fracture and hip fracture. According to the National OsteoporosisFoundation guidelines, postmenopausal women and men age 50 or older with low bonemass and a 10 year probability of a major osteoporosis related fracture = or greater than 20% or a 10 year probability of a hip fracture = or greaterthan 3% should be considered for treatment. For further information, including treatment recommendations, please referto the 2013 ISCD Official Positions (http://www.iscd.org) and the NOF's Clinician's Guide to Prevention and Treatment of Osteoporosis (http://www.nof.org/professionals/clinical-guidelines) THIS IS AN ELECTRONICALLY VERIFIED FINAL REPORT 09/30/2022 8:06 PM - Electronically signed by Edu Garcia M.D. MF: GLO Report ID: [id number] Reading Location: [place] [address] Rachelle Early MD IM DXA PROCEDURES Fin al Result * Hepatitis C antibody (03/24/2019 3:41 PM CDT) Hep C Ab NON-REACT PEACE NON-REACT PEACE [facility] [place] SIGNAL TO CUT-OFF 0.01 <1.00 [facility] [place] Comment: HCV antibody was non-reactive. There is no laboratory evidence of HCV infection. In most cases, no further action is required. However, if recent HCV exposure is suspected, a test for HCV RNA (test code 11545) is suggested. For additional information please refer to http://education.[employer]/faq/QAH85y2 (This link is being provided for informational/ educational purposes only.) Blood specimen (specimen) 03/24/2019 3:41 PM CDT 03/24/2019 3:42 PM CDT Narrative Resulting Agency Comment Performing Organization Information: Site ID: [place] Name: [facility] Address: [address] [address] Director: Francis Villagran D.O., MPH [facility] MICROBIOLOGY - GE NERAL ORDERABLES Final Result [facility] [place] [facility] * HM PAP SMEAR WITH HPV (11/21/2016) HM Pap smear Normal Historical Provider HEALTH MAINTENANCE Final Result from Last 3 Months or Most Recently Relevant to Health Maintenance Insurance [facility] MEDICARE ADVANTAGE [facility] MEDICARE Address: [facility] [id number] [place] [id number] [facility] MDCR HMO REF [facility] MEDICARE Address: [address] [place] [address] [facility] CHOICE PLUS [facility] HMO/PPO Address: [address] [address] [place] [address] [facility] MEDICARE ADVANTAGE [facility] MEDIC[facility] Address: [address] [address] [place] [address] Advance Directives For more information, please contact: [phone] * Full Code (Latest Code Status on File) Date Activated Date Inactivated Comments 05/12/2024 9:52 AM 05/12/2024 4:13 PM * Full Code Date Activated Date Inactivated Comments 04/01/2022 5:28 PM 04/03/2022 5:44 PM * Full Code Date Activated Date Inactivated Comments 08/27/2020 1:36 PM 08/27/2020 8:49 PM Care Teams Test Desk Trouble Locator Relationship Specialty Start Date End Date Rachelle Early MD [address] [place] [address] PCP - General Internal Medicine 04/26/19 Domingo Schmitt III, MD [address] [place] [address] Consulting Physician Rheumatology 02/28/19
--- OUTSIDE RECORDS SUMMARY | 2025-05-23 17:55 | XMS_ITS | Encounter Summary ---
Author Organization [facility] Healthcare Address [address] [place] [address] Care Team Providers Care Prop Worker Name Role Phone Oskar MEHTA MD, [facility] [phone] Rachelle Early MD Primary Care Provider Encounter Details Date Type Department Care Team (Late st Contact Info) Description 03/16/2023 Telephone [facility] [address] [place] [id number] Farhat Almanza, RT Social History Tobacco Use Types Packs/Day Years Used Date Smoking Tobacco: Former Smokeless Tobacco: Never Alcohol Use Standard Drinks/Week Comments Yes 0 (1 standard drink = 0.6 oz pur e alcohol) AUDIT-C Answer Date Recorded Q1: How often do you have a drink containing alc ohol? Never 11/21/2021 Average Number of Drinks Not on file 022 Frequency of Binge Drinking Not on file 10/27 PHQ-2 Answer Date Recorded PHQ-2 Total Score (If total score is 3 or more points, staff should administer the PHQ-9) 0 07/16/2022 Comments No Sex and Gender Information Value Date Recorded Sex Assigned at Not on file Legal Sex Female 12:44 AM SEWER HEAD Gender Identity Female 02/28/2022 1:54 PM CDT Sexual Orientation Straight 02/28/2022 1: 54 PM CDT Occupation Industry Job Start Date Job End Date Retired Not on file Not on file Not on file documented as of this encounter Plan of Treatment Scheduled Procedures Name Priority Associated Diagnoses Date/Ti me COLONOSCOPY Colon cancer screening ESOPHAGOGASTRODUODENOSCOPY Gastroesophageal reflux disease, unspecified whether esophagitis present COLONOSCOPY Screen for colon cancer documented as of this encounter Visit Diagnoses Not on filedocumented in this encounter Additional Health Concerns Infection Onset Date Last Indicated Resolved Time Exposure, COVID-19 Comment:Added automatically based on COVID19 lab answers indicating exposure risk 08/20/2023 08/20/2023 08/30/2023 3:[address] COVID: Suspected 08/20/2023 08/20/2023 08/20/2023 5:18 PM CDT COVID: Suspected 08/28/2023 08/28/2023 08/28/2023 3:21 PM CDT documented as of this encounter Care Teams Prop Worker Relationship Specialty Start Date End Date Rachelle Early MD [address] [place] [address] PCP - General Internal Medicine 04/26/19 Domingo Schmitt III, MD [address] [place] [address] Consulting Physician Rheumatology 02/28/19 documented as of this encounter
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
--- OUTSIDE RECORDS SUMMARY | 2025-05-23 17:55 | XMS_ITS | Clinical Summary ---
Author Organization [facility] Address [address] [place] [address] Care Team Providers Care Operating Room Specialist Name Role Phone Rachelle Early MD Primary Care Provider Source Comments [facility],non-owned Affiliates and Associated Physician Practices is amultiple site organization consisting of ambulatory clinics and hospital sitesin [place], [place], [place] and [place]. This disclosure is being madepursuant to the Care Everywhere program and may not contain all information available regarding this patient. Last updated 18.[facility] [employer] Allergies No known active allergies Immunizations Immunization Administration Dates Next Due INFLUENZA VACCINE, QUADR. (F LUZONE; FLULAVAL; FLUARIX; AFLURIA QUADRIVALENT; 6MO+), 0.5 ML (IIV4) 09/13/2018,07/04/2016,07/17/2015 TD (AGE 7-ADULT) 11/26/2005 TDAP (7yrs+) 07/04/2016 Social History Tobacco Use Types Packs/Day Years Used Date Smoking Tobacco: Never Assessed Comments Unknown Sex and Gender Information Value Date Recorded Sex Assigned at Not on file Legal Sex Female 9:03 AM CDT Gender Identity Not on file Sexual Orientation Not on file Plan of Treatment Health Maintenance Due Date Last Done Comments COLOGUARD (AGES 45-75) - COLON CA SCREENING 1955 CT COLONOGRAPHY - COLON CA SCREENING 1955 FIT - COLON CA SCREENING 1955 FLEX SIG - COLON CA SCREENING 1955 LIPID TESTING 1955 HEPATITIS C SCREENING 11/12/1975 PNEUMOCOCCAL VACCINE 50+ (1 of 1 - PCV) 2007 ZOSTER VACCINE (1 of 2) 2007 COVID-19 VACCINE (2 season) 2024 01/03/2021 DEPRESSION SCREENING 10/26/2024 INFLUENZA VACCINE (#1) 2025 , 08/07/2020, 07/30/2019, Additional history exists MAMMOGRAM 09/14/2025 09/14/2023, 08/27, 01/20/2022, Additional history exists DTAP/TDAP/TD VACCINES (3 - Td or Tdap) 07/04/2026 07/04/2016, 11/26/2005 Respiratory Syncytial Virus (RSV) Vaccine Pt: or over 60 yrs (1 - 1-dose 75+ series) 2032 COLON MONITORING 05/12/2034 05/12/2024 COLONOSCOPY - COLON CA SCREENING 05/12/2034 05/12/2024 Colorectal Cancer Screening 05/12/2034 BONE DENSITY TESTING Completed 09/30/2022 HEPATITIS B VACCINE Aged Out No longe r eligible based on patient's age to complete this topic HIB VACCINE Aged Out No longer eligi ble based on patient's age to complete this topic HPV VACCINE Aged Out No longer eligi ble based on patient's age to complete this topic MENINGOCOCCAL (Group B) VACCINE SHARED DECISION-MAKING Aged Out No longer eligible based on patient's age to complete this topic MENINGOCOCCAL GROUPS A/C/Y/W VACCINE Aged Out No longer eligible based on patient's age to complete this topic Insurance [facility] Care Teams Operating Room Specialist Relationship Specialty Start Date End Date Rachelle Early MD [address] [facility] [address] [place] [address] PCP - General Internal Medicine 08/08/19
--- OUTSIDE RECORDS SUMMARY | 2025-05-23 17:55 | XMS_ITS | Clinical Summary ---
Author Organization [facility] Address [address] [place] [address] Phone Care Team Providers Care Cooker Chip Name Role Phone Rachelle Early MD Primary Care Provider Allergies No known active allergies Active Problems Problem Noted Date Diagnosed Date Adjustment disorder with mixed anxiety and depre ssed mood 09/24/2015 Social History Tobacco Use Types Packs/Day Years Used Date Smoking Tobacco: Never Smokeless Tobacco: Never Alcohol Use Standard Drinks/Week Comments Yes 2 (1 standard drink = 0.6 oz pur e alcohol) Sexually Active Control Partners Comments Yes Oral Contraceptive Comments Unknown Sex and Gender Information Value Date Recorded Sex Assigned at Not on file Legal Sex Female 2:50 PM CDT Gender Identity Not on file Sexual Orientation Not on file Plan of Treatment Health Maintenance Due Date Last Done Comments Hepatitis C Virus (HCV) Screening 1955 TdaP Immunization 1955 Cologuard 2002 Colonoscopy 2002 Colorectal Cancer Screening 2002 Immunochemical Fecal Occult Blood 2002 Pneumococcal Immunization (5 0+ years) (1 of 1 - PCV) 2007 SARS-COV-2 Immunization ( - season) 2024 10/28/2021, 01/03/2021 Influenza Immunization (#1) 2025 07/30/2019 Respiratory Syncytial Virus (RSV) Immunization (Adult) (1 - 1-dose 75+ series) 2032 Zoster Immunization Completed 09/12/2019, 07/08/2019 Hepatitis B Immunization Aged Out No longer eligible based on patient's age to complete this topic Human Papillomavirus (HPV) Immunization Aged Out No longer eligible b ased on patient's age to complete this topic Meningococcal Immunization (ACWY) Aged Out No longer eligible b ased on patient's age to complete this topic Rotavirus Immunization Aged Out No lo nger eligible based on patient's age to complete this topic Insurance [facility] Care Teams Cooker Chip Relationship Specialty Start Date End Date Rachelle Early MD [address] [facility] [address] [place] [address] PCP - General Internal Medicine 10/17/15
--- OUTSIDE RECORDS SUMMARY | 2025-05-23 17:55 | XMS_ITS | Clinical Summary ---
Author Organization [facility] Address [address] [place] [address] Care Team Providers Care Vending Mechanic Name Role Phone Rachelle Early MD Primary Care Provider [phone] Allergies No known active allergies Medications acetaminophen (TYLENOL) 500 MG tablet Take 2 tablets (1,000 mg total) by mouth every 6 (six) hours as needed. Active albuterol sulfate HFA 108 (90 Base) MCG/ACT inhaler INHALE 2 PUFFS BY MOUTH EVERY 6 HOURS NEEDED FOR WHEEZING OR SHORTNESS OF BREATH 3 Active atorvastatin (LIPITOR) 40 MG tablet Take 1 tablet (40 mg total) by mouth daily. 4 Active fluticasone propionate (FLONASE) 50 MCG/ACT nasal spray 1 spray by Nasal route daily. Active ibuprofen (MOTRIN) 600 MG tablet Take 1 tablet (600 mg total) by mouth. Active traZODone (DESYREL) 50 MG tablet Take 1 tablet (50 mg total) by mouth daily. 4 Active traMADol (ULTRAM) 50 MG tablet Take 1 tablet (50 mg total) by mouth every 6 (six) hours as needed for Pain. Active SEMAGLUTIDE OR Activ e Family History Medical History Relation Comments Hypertension Father Atrial fibrillation Mother Heart Disease Mother Relation Status Comments Father Mother Social History Tobacco Use Types Packs/Day Years Used Date Smoking Tobacco: Former Cigarettes Passive Smoke Exposure: Past Smokeless Tobacco: Never Tobacco Cessation:Counseling Given: Not Answered Alcohol Use Standard Drinks/Week Comments Yes 0 (1 standard drink = 0.6 oz pur e alcohol) rare use Comments No Sex and Gender Information Value Date Recorded Sex Assigned at Not on file Legal Sex Female 4:49 PM CDT Gender Identity Not on file Sexual Orientation Not on file Last Filed Vital Signs Vital Sign Reading Time Taken Comments Blood Pressure 155/70 09/24/2024 2:03 PM [employer] Pulse 80 09/24/2024 2:03 PM [employer] Temperature 36.6 C (97.9 F) 09/24/2024 2:03 PM [employer] Respiratory Rate 20 09/24/2024 2:03 PM [employer] Oxygen Saturation 97% 09/24/2024 2:03 PM [employer] Inhaled Oxygen Concentration - - Weight 71.2 kg (157 lb) 09/24/2024 2:03 PM [employer] Height 157.5 cm (5' 2) 09/24/2024 2:03 PM [employer] Body Mass Index 28.72 09/24/2024 2:03 PM [employer] Plan of Treatment Health Maintenance Due Date Last Done Comments Colorectal Cancer Screening Colonoscopy (10 Years) 1955 Hepatitis C 1975 Annual Medicare Wellness Visit 2022 COVID-19 Vaccine (3 - 2023-2 5 season) 2024 10/28/2021, 01/03/2021 Mammogram Screening 09/14/2025 09/14/2023, 01/20/2022, 07/08/2019 DTaP, Tdap and Td Vaccines ( 2 - Td or Tdap) 07/04/2026 07/04/2016, 11/26/2005 Zoster Vaccines Completed 09/12/2019, 07/08/2019 Dexa Scan (General) Completed 09/30/2022, 09/30/2022 Pneumococcal Vaccine: 50+ Years Completed 10/28/2023 RSV Immunization or 60+ Years Completed 11/21/2023 Meningococcal B Vaccine Aged Out No l onger eligible based on patient's age to complete this topic Meningococcal Vaccine Aged Out No colt tashi eligible based on patient's age to complete this topic RSV Immunizations Under 20 Months Aged Out No longer eligible b ased on patient's age to complete this topic Insurance [employer] Care Teams Vending Mechanic Relationship Specialty Start Date End Date Rachelle Early MD PCP - General INTERNAL MEDICINE 09/24/24
--- OUTSIDE RECORDS SUMMARY | 2025-05-23 17:55 | XMS_ITS | Encounter Summary ---
Author Organization [facility] Address [address] [place] [address] Care Team Providers Care Product Applications Scientist Name Role Phone Oskar MEHTA MD, [facility] [phone] Rachelle Early MD Primary Care Provider Reason for Visit * Reason Onset Date Comments Urinary Problem 05/23/2025 Encounter Details Date Type Department Care Team (Late st Contact Info) Description 05/23/2025 Nurse Triage [address] [place] [address] Rachelle Early MD [address] [place] [address] [address] [place] [address] Social History Tobacco Use Types Packs/Day Years Used Date Smoking Tobacco: Former Cigarettes 1 45 1 973 - 2018 Passive Smoke Exposure: Past Smokeless Tobacco: Current Comments:Lozenge when people are smoking around her [...] on file Legal Sex Female 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 Pt states she currently has increased urination urge, freq, slight burning and some bleeding. Pt states these are typical s/s of when she has a UTI. Noback pain, no fever. Disposition See Physician Within 24 Hours Evi Zavala declined [facility] appt and states sh has an UC down the street and will go there. Reason for Disposition Blood in urine (red, pink, or tea-colored) Protocols Used Urination Pain - [id number] * Telephone Encounter - Vandana Manuel RN - 05/23/2025 5:04 PM CDT Regarding: frequency urination, mild burning, blood in urine ----- Message from Ashish Mcarthur sent at 05/23/2025 5:03 PM CDT ----- Symptom Based Call Chief Complaint(s): frequency urination, mild burning, blood in urine Duration: today What type of symptom(s) is the patient experiencing? Red Flag. Is the patient concerned they are experiencing a medical emergency requiring an ambulance? No Additional Comments: Patient states she will be going out of town tomorrow, and is seeking some kind a medical advise. Does message need to be routed? Yes-Action Needed documented in this encounter Plan of Treatment Scheduled Procedures Name Priority Associated Diagnoses Date/Ti me COLONOSCOPY Colon cancer screening ESOPHAGOGASTRODUODENOSCOPY Gastroesophageal reflux disease, unspecified whether esophagitis present COLONOSCOPY Screen for colon cancer documented as of this encounter Visit Diagnoses Not on filedocumented in this encounter Care Teams Product Applications Scientist Relationship Specialty Start Date End Date Rachelle Early MD [address] [place] [address] PCP - General Internal Medicine 04/26/19 Domingo Schmitt III, MD [address] [place] [address] Consulting Physician Rheumatology 02/28/19 documented as of this encounter
--- NOTE | 2025-05-23 17:59 | ED_ITS ---
HPI - Female Genitourinary General Chief complaint: Urogenital-Female Stated complaint: uti Time Seen by Provider: 05/23/25 17:55 Source: patient Mode of arrival: ambulatory Limitations: no limitations History of Present Illness HPI Narrative: Patient is a 69-year-old female who presents with 2 hours of urgency, frequency and burning with urination. Denies any low back pain, fever, chills, nausea, vomiting, diarrhea. Patient has had UTIs in the past. MD elicited complaint: dysuria Related Data Home Medications ?Medication ?Instructions ?Recorded ?Confirmed ?Last Taken ?Type atorvastatin 40 mg tablet 40 mg PO DAILY 02/04/22 05/23/25 Unknown History fluticasone 100 mcg-salmeterol 50 1 inh inhalation BID 02/04/22 05/23/25 Unknown History mcg/dose blistr powdr for inhalation (Advair Diskus) tramadol 50 mg tablet 50 mg PO Q8-10H 02/04/22 05/23/25 Unknown History amlodipine 5 mg tablet mg 05/23/25 Unknown History gabapentin 300 mg capsule mg 05/23/25 Unknown History trazodone 50 mg tablet mg 05/23/25 Unknown History Allergies Allergy/AdvReac Type Severity Reaction Status Date / Time No Known Allergies Allergy Verified 05/23/25 18:00 Review of Systems Review of Systems: All systems reviewed & are unremarkable except as noted in HPI and below Constitutional: Constitutional: Denies chills, Denies fever(s), Denies headache(s), Denies malaise and Denies weakness Eyes: Eyes: Denies change in vision, Denies eye discharge and Denies irritation ENT: Denies otalgia, Denies headache(s), Denies nasal congestion, Denies nasal discharge, Denies sinus pain and Denies sore throat Cardiovascular: Cardiovascular: Denies chest pain, Denies edema, Denies palpitations and Denies dyspnea Respiratory: Respiratory: Denies cough and Denies dyspnea Gastrointestinal: Gastrointestinal: Denies abdominal pain, Denies diarrhea, Denies nausea and Denies vomiting Genitourinary: Genitourinary: Denies hematuria, Reports nocturia, Reports dysuria, Denies flank pain and Reports urinary urgency Musculoskeletal: Musculoskeletal: Denies back pain and Denies numbness Integumentary/Breasts: Skin/Breast: Denies pruritus and Denies rash Neurologic: Denies headache(s), Denies numbness and Denies weakness Psychiatric: Psychiatric: Reports no additional psychiatric complaints Endocrine: Endocrine: Denies palpitations PMFSH Past Medical History Medical History Psoriasis History of IBS Social History Social History Smoking status: Never smoker Living arrangements: with family Comments At time of signature, agree with nursing past medical, surgical, social and family history. There is no relevant family history pertinent to the presenting complaint. Exam Const: General: cooperative, healthy appearing, comfortable, no acute distress and well nourished Nutritional Appearance: well nourished Orientation/consciousness: patient oriented x3 HENMT: Head: normocephalic and atraumatic Ears: external ears normal Face/Nose/Sinus: Normal external nose present, Normal nares present and normal facial exam Face and sinus: normal facial exam Eyes: General: appearance normal, both eyes and all related structures Pupils: Equal, round and reactive pupils present EOM: EOMs intact bilaterally Neck: Neck: normal visual inspection, full ROM and supple Chest: Chest palpation & inspection: normal inspection of the chest Resp: Effort & Inspection: normal respiratory effort and able to speak in complete sentences Cardio: Rate: tachycardic Rhythm: regular rhythm GI: Inspection: normal to inspection GI Palp: No abdominal tenderness and Yes Soft to palpation : General: Yes no CVA tenderness Back/Spine/Pelvis: Back: no CVA tenderness Skin: General skin exam: normal color and no rashes or lesions noted Neuro: General: patient oriented x3 and moves all extremities Cranial nerves: Yes Equal, round and reactive pupils present Extrem: General: normal to inspection and full ROM Psych: Appearance: grossly normal and well kempt Course Course Emergency Course: Patient is aware of diagnosis, understands and agrees to treatment plan. Anticipatory guidance given. Patient agrees to follow-up as directed and is aware of reasons to seek care at the emergency department. Portions of this record may have been created with voice recognition software Level of Care: Express Care Visit Vital Signs Vital signs: Vital Signs Temperature 36.7 C 05/23/25 18:06 Pulse Rate 114 H 05/23/25 18:06 Respiratory Rate 16 05/23/25 18:06 Blood Pressure 149/71 H 05/23/25 18:06 Pulse Oximetry 98 05/23/25 18:06 Oxygen Delivery Room Air 05/23/25 18:06 Temperature 36.7 C 05/23/25 18:06 Pulse Rate 114 H 05/23/25 18:06 Respiratory Rate 16 05/23/25 18:06 Blood Pressure 149/71 H 05/23/25 18:06 Pulse Oximetry 98 05/23/25 18:06 Oxygen Delivery Room Air 05/23/25 18:06 Reviewed MDM - Female Genitourinary MDM Narrative Medical decision making narrative: Exam findings and UA show probable UTI; patient is non-toxic appearing and is in no distress. No CMT, adnexal tenderness, or evidence of pelvic etiology. Patient is appropriate for outpatient treatment and follow-up. Differential Diagnosis Differential diagnosis: Likely urinary tract infection, bacterial vaginosis, trichomoniasis, cervicitis, vaginitis and cystitis Medical Records Attestation: I reviewed the patient's medical records. Lab Data Attestation: I reviewed the patient's lab results. Labs: Lab Results 05/23/25 Range/Units 18:07 POC Urine Color Yellow POC Urine Clarity Cloudy POC Urine pH 6.5 POC Ur Specif [place] 1.010 POC Urine Protein Negative (Negative) POC Ur Glucose (UA) Negative (Negative) POC Urine Ketones Negative (Negative) POC Urine Blood 1+ (Negative) POC Urine Nitrite Negative (Negative) POC Urine Bilirubin Negative (Negative) POC Urine Urobilinogen 0.2 POC U Leukocyte Esteras 1+ (Negative) Discharge Plan Discharge Clinical Impression: Urinary tract infection Qualifiers: Urinary tract infection type: acute cystitis Hematuria presence: with hematuria Qualified Code(s): N30.01 - Acute cystitis with hematuria Patient Disposition: Home Condition: Stable Instructions: Urinary Tract Infection in Women (ED) Additional Instructions: We will send a urine culture to the lab, based on your symptoms and urine dip we will start treatment today. If culture comes back and bacteria is not susceptible to antibiotic, your prescription may change. Your symptoms should improve within a day of starting antibiotics, but you should finish all the antibiotic pills you get. Otherwise your infection might come back Continue with increased water intake. Take Tylenol or ibuprofen as needed for pain or fever. Follow-up with primary care provider for urine recheck or see ER visit if condition worsens with high fever, nausea, vomiting, severe back pain Patient Language: Faroese Prescriptions: New phenazopyridine [Pyridium] 200 mg tablet 200 mg PO TID 3 Days Qty: 9 0RF sulfamethoxazole-trimethoprim 800-160 mg tablet 1 tablet PO Q12H 5 Days Qty: 10 0RF No Action atorvastatin 40 mg tablet 40 mg PO DAILY tramadol 50 mg tablet 50 mg PO Q8-10H fluticasone propion-salmeterol [Advair Diskus] 100-50 mcg/dose blister with device 1 inh INHALATION BID trazodone 50 mg tablet amlodipine 5 mg tablet gabapentin 300 mg capsule Follow-up/Referrals: Pritesh Tony MD [Physician] - 3 Days Time of Disposition: 18:18
[2025-05-23 18:06] VITALS: BP 149/71; PULSE 114; RESP 16; TEMP 36.7; O2SAT 98
[2025-05-23 18:10] LABS: EDUAAPPEAR Cloudy; EDUABILI Negative (Negative); EDUABLOOD 1+ (Negative); EDUACOLOR1 Yellow; EDUAGLUCOSE Negative (Negative); EDUAKETONE Negative (Negative); EDUALEUKO 1+ (Negative); EDUANITRATE Negative (Negative); EDUAPH 6.5; EDUAPROTEIN Negative (Negative); EDUASPGRAVITY 1.010; EDUAUROBILI 0.2
== END 2025-05-23 18:20 | disposition home or self-care (01) ==
PROVIDERS: Emergency Provider Nurse Practitioner Family
DX: N30.01 Acute cystitis with hematuria (principal); Z79.899 Other long term (current) drug therapy
CPT/HCPCS: 81003; 87086; 99213; G0463